=== PATIENT | male | born 1955 | race Caucasian/White ===

== ENCOUNTER 2022-03-28 18:11 | Emergency (ER) | payer BC, SELFPAY ==
[2022-03-28] VITALS (8 sets, daily range): BP systolic 105–143; BP diastolic 72–109; PULSE 64–86; RESP 12–21; TEMP 36.6; O2SAT 93–98; BMI 36.3
--- NOTE | 2022-03-28 18:23 | ED.GENADULT ---
HPI - General Adult General Time Seen by Provider: 18:23 Date Seen: 03/28/22 Chief complaint: Allergic Reaction Stated complaint: Wasp Sting Time Seen by Provider: 03/28/22 18:18 Source: patient Mode of arrival: ambulatory Limitations: no limitations History of Present Illness HPI narrative: Patient is a 67 year white male who was out mowing his lawn, got bit by a wasp in his left cheek, had some mild redness there and swelling. Since then he has had some swelling his armpits his forearms he was diffusely rash she, he has some chest tightness that is now resolved. No throat swelling, no tongue swelling, the patient has not had any reactions to bug bites in the past or be bites or wasps. History of hypercholesterolemia, hypertension, hypothyroidism. Patient reports he feels much better now, but given he had the rash systemic feeling of generalized weakness and the insect bite he presents to the ED. this episode happened about an hour ago. Related Data Home Medications Medication Instructions Recorded Confirmed atorvastatin 40 mg tablet mg 03/28/22 ketoconazole 2 % topical cream applic topical 03/28/22 levothyroxine 100 mcg tablet mcg 03/28/22 lisinopril 10 mg tablet mg 03/28/22 Allergies Allergy/AdvReac Type Severity Reaction Status Date / Time venom-wasp Allergy Verified 03/28/22 18:22 Review of Systems Status of ROS: Reports: 6 or more systems reviewed and unremarkable except as noted in History and below Exam Narrative: Exam Narrative: Objective: In general patient is no apparent distress noncyanotic HEENT shows a reddened area over his left maxillary area consistent with a bug bite, with careful inspection of his no stinger left it Neck is supple Chest is clear Heart rate and rhythm regular heart murmur Abdomen benign soft Extremities are no edema neurologic nonfocal skin exam shows diffuse patchy reddened areas over his volar forearms his armpits Const: Vital Signs, click to edit/add: Vital Signs - 24 hr 03/28/22 18:23 Temperature 97.8 F Pulse Rate [Left P ulse Oximeter] 86 Respiratory Rate 18 Blood Pressure [Le ft Upper Arm] 105/72 Pulse Oximetry 97 Oxygen Delivery Me thod Room Air Course Vital Signs Vital signs: Initial Vital Signs Temperature 97.8 F 03/28/22 18:23 Temperature Source Temporal Artery Scan 03/28/22 18:23 Pulse Rate 86 08/10/22 18:23 Respiratory Rate 18 03/28/22 18:23 Blood Pressure 105/72 03/28/22 18:23 Blood Pressure Mean 83 03/28/22 18: Blood Pressure Position Sitting 03/28/22 18:23 Pulse Oximetry 97 03/28/22 18:23 Oxygen Delivery Method 03/28/22 18:23 Vital Signs Temperature 97.8 F 03/28/22 18:23 Pulse Rate 86 03/28/22 18: Respiratory Rate 18 03/28/22 18:23 Blood Pressure 105/72 03/28/22 18:23 Pulse Oximetry 97 03/28/22 18:23 Oxygen Delivery Method 03/28/22 18:23 Temperature 97.8 F 03/28/22 18:23 Pulse Rate 86 03/28/22 18:23 Respiratory Rate 18 03/28/22 18:23 Blood Pressure 105/72 03/28/22 18:23 Pulse Oximetry 97 03/28/22 18:23 Oxygen Delivery Method 03/28/22 18:23 Medical Decision Making MDM Narrative Medical decision making narrative: Patient had an insect bite causing diffuse rash and generalized weakness and some chest tightness, likely these are all related. But because he was mowing his yd will also do a troponin and EKG to make sure he does not have any ischemic change. Will see how he responds and maybe repeat this at some point, will give him IV Benadryl and Solu-Medrol at this time. As well as a L of IV fluid, he will need to be monitored over over the next period of an hour to make sure he has no further reaction. Addendum: The patient received IV fluid, IV Benadryl and IV Solu-Medrol. His rashes in his armpits and forearms are faded slightly to proximally the same, he has no chest discomfort no throat tightening no diffuse body weakness. He feels back to baseline. At this point I think he can go home since [place] in town and lives nearby, his will be with him to monitor him, would have be on prednisone 20 mg b.i.d. x3 days and Benadryl 25 t.i.d. x3 days. I am also going to prescribe him an EpiPen. Would have him follow up with regular doctor within the next couple of days for reassessment, return to the ED sooner problems or concerns. Lab Data Labs: Lab Results 03/28/22 03/28/22 03/28/22 Range/Units 18:25 18:25 18:25 WBC 11.36 H (4.50-11.00) K/uL RBC 5.58 (4.30-5.90) m/uL Hgb 15.1 (13.5-17.5) gm/dL Hct 46.2 (37.0-53.0) % MCV 83 (80-100) fL MCH 27 (26-34) pg MCHC 33 (32-36) gm/dL RDW Coeff of Nilda 14.9 (11.5-15.5) % Plt Count 268 (140-440) K/uL Neut % (Auto) 79.6 H (42.0-72.0) % Lymph % (Auto) 10.5 L (20-44) % [place] % (Auto) 8.7 (0.0-11.0) % Eos % (Auto) 0.9 (0.0-7.0) % Baso % (Auto) 0.1 (0.0-3.0) % Neut # (Auto) 9.00 H (1.7-7.0) K/uL Lymph # (Auto) 1.20 (0.90-2.90) K/uL [place] # (Auto) 1.00 H (0.00-0.90) K/UL Eos # (Auto) 0.10 (0.00-0.50) K/uL Baso # (Auto) 0.00 (0.00-0.30) K/uL Abs Immat Gran (auto) 0.02 (0.00-0.30) K/uL Sodium 140 (135-149) mmol/L Potassium 4.3 (3.6-5.1) mmol/L Chloride 107 (96-114) mmol/L Carbon Dioxide 24 (20-32) mmol/L BUN 28 (7-30) mg/dL Creatinine 1.3 (0.5-1.5) mg/dL Estimated Creat Clear 60.34 Estimated GFR 61 ml/min Glucose 129 H (60-115) mg/dL Calcium 10.1 (8.4-10.6) mg/dL Total Bilirubin 0.7 (0.1-1.5) mg/dL Direct Bilirubin 0.1 (0.0-0.5) mg/dL AST 41 H (12-35) U/L ALT 34 (4-50) U/L Alkaline Phosphatase 85 (40-150) U/L C-Reactive Protein < 0.5 L (0.5-1.0) mg/dL NT-Pro-B Natriuret Pep 79 (0-125) PG/mL Total Protein 7.1 (6.0-8.3) g/dL Albumin 4.5 (3.3-5.0) g/dL POC Troponin I 0.00 L (0.01-0.04) ng/ml Discharge Plan Discharge Clinical Impression: Allergic reaction Prescriptions: No Action atorvastatin 40 mg tablet levothyroxine 100 mcg tablet lisinopril 10 mg tablet ketoconazole 2 % cream TOPICAL
[2022-03-28] MEDS: METHYLPREDNISOLONE SOD SUCC 62.5 MG/ML (125) 125 MG IVP (18:29)
[2022-03-28] MEDS: diphenhydrAMINE 50 MG/ML inj 25 MG IVP (18:29)
[2022-03-28] MEDS: 0.9 % SODIUM CHLORIDE 1000 ml 1,000 ML 6000 ML IV (18:30)
[2022-03-28 18:37] LABS: Basophils Percent Auto 0.1 % (0.0-3.0); Eosinophils Percent Auto 0.9 % (0.0-7.0); Hematocrit 46.2 % (37.0-53.0); Hemoglobin* 15.1 gm/dL (13.5-17.5); Immature Granulocytes Abs Auto 0.02 K/uL (0.00-0.30); Lymphocytes Percent Auto 10.5 % (20-44); Mean Corpuscular HGB Conc 33 gm/dL (32-36); Mean Corpuscular Hemoglobin 27 pg (26-34); Mean Corpuscular Volume 83 fL (80-100); Monocytes Percent Auto 8.7 % (0.0-11.0); Neutrophils Percent Auto 79.6 % (42.0-72.0); Platelet Count* 268 K/uL (140-440); RDW Coefficient of Variation % 14.9 % (11.5-15.5); Red Blood Count 5.58 m/uL (4.30-5.90); White Blood Count* 11.36 K/uL (4.50-11.00)
[2022-03-28 18:39] LABS: Slide Review Reflex No
[2022-03-28 18:50] LABS: Albumin* 4.5 g/dL (3.3-5.0); Chloride* 107 mmol/L (96-114); Sodium* 140 mmol/L (135-149)
[2022-03-28 18:51] LABS: Potassium* 4.3 mmol/L (3.6-5.1)
[2022-03-28 18:53] LABS: Alanine Aminotransferase* 34 U/L (4-50); Alkaline Phosphatase* 85 U/L (40-150); Aspartate Amino Transferase* 41 U/L (12-35); Bilirubin Direct* 0.1 mg/dL (0.0-0.5); Bilirubin Total* 0.7 mg/dL (0.1-1.5); Blood Urea Nitrogen* 28 mg/dL (7-30); Carbon Dioxide* 24 mmol/L (20-32); Creatinine* 1.3 mg/dL (0.5-1.5); Est. Creatinine Clearance* 60.34; Estimated Glomerular Filt Rate 61 ml/min; Glucose* 129 mg/dL (60-115); Total Protein* 7.1 g/dL (6.0-8.3)
[2022-03-28 18:54] LABS: Calcium* 10.1 mg/dL (8.4-10.6)
[2022-03-28 18:59] LABS: C Reactive Protein* < 0.5 mg/dL (0.5-1.0)
[2022-03-28 19:02] LABS: NT Pro B Type NatriureticPept* 79 PG/mL (0-125)
== END 2022-03-28 20:07 | disposition home or self-care (01) ==
PROVIDERS: Emergency Provider Family Medicine
DX: T63.461A Toxic effect of venom of wasps, accidental (unintentional), initial encounter (principal)
CPT/HCPCS: 36415; 80048; 80076; 83880; 84484; 85025; 86140; 93005; 96374; 96375; 99284; J1200; J2930; J7030

== ENCOUNTER 2023-10-10 08:30 | Outpatient (RCR) | payer MEDICARE, BC, SELFPAY | END 2023-11-18 09:52 | disposition home or self-care (01) | PROVIDERS: Visit Provider Family Medicine | DX: S49.92XA Unspecified injury of left shoulder and upper arm, initial encounter (principal); M25.512 Pain in left shoulder; Z51.89 Encounter for other specified aftercare | CPT/HCPCS: 97110; 97140; 97161 ==